=== PATIENT | female | born 1995 | race American Indian/Alaskan Native ===

== ENCOUNTER 2021-11-12 17:51 | Emergency (ER) | payer SELFPAY ==
[2021-11-12] MEDS ORDERED: HYDROmorphone 2 MG/1 ML INJ IV ONE (20:02)
[2021-11-12] MEDS ORDERED: ONDANSETRON 4 MG/2 ML INJ IV ONE (20:02)
[2021-11-12] MEDS ORDERED: SODIUM CHLORIDE 0.9% 1000 ML 1,000 ML IV ONE (20:02)
--- NOTE | 2021-11-12 20:05 | Emergency Department Report ---
ED HPI - General Chief complaint: Vaginal Bleeding Stated complaint: MISCARRIAGE (LOOSING BLOOD) Time Seen by Provider: 11/12/21 19:45 Source: patient Mode of arrival: Ambulatory Limitations: No Limitations - History of Present Illness Initial comments: Patient is a 26-year-old female that presents emergency room with complaints of vaginal bleeding and lower abdominal pain. Patient states the pain started early this morning. Patient states she woke up in a pool of blood. Patient states she has soaked through multiple pads. Patient states that she is 10 to 11 weeks . Patient states she had an ultrasound at [facility] to confirm approximately 4 weeks ago. Patient states she has not seen an [facility] as of yet. Patient states she is not taking a vitamin. Patient states she is a and has never had a miscarriage or an . Patient states the pain is severe. Patient states the pain is cramping and was intermittent but now it is constant. Patient states she is passing heavy blood and a lot of clots. Patient states she is soaking through pads approximately 1 pad every 10 minutes. Patient denies recent travel. Patient denies recent international travel. Patient denies exposure to the novel coronavirus. Patient denies sick contacts. Patient denies fever and chills. Patient denies cough. Patient denies diarrhea. Patient denies coming in contact with anybody with symptoms of the novel coronavirus. MD Complaint: abdominal pain, vaginal bleeding, "contractions" -: Sudden Location: pelvis, abdomen Radiation: suprapubic Severity scale (0 -10): 10 Quality: cramping Consistency: intermittent Improves with: rest Worsens with: movement Associated symptoms: vaginal bleeding, abdominal pain. denies: headache, vision changes, malaise, dysparuenia, rash, seizure, shortness of breath, syncope, weakness Vaginal bleeding: heavy, clots :: Yes Number of weeks : 11 OB History - Current : no complications OB History - Previous Pregnancies: no complications Pre- care: previous ultrasound confi - Related Data : 3 Para: 2 Ab: 0 Previous Rx's Medication Instructions Recorded Last Taken Type Acetaminophen/Codeine [Tylenol 1 tab PO Q6H PRN #15 tab 11/13/21 Unknown Rx /Codeine # 3 tab] Allergies Allergy/AdvReac Type Severity Reaction Status Date / Time No Known Allergies Allergy Verified 11/12/21 21:37 ED Review of Systems ROS: Stated complaint: MISCARRIAGE (LOOSING BLOOD) Other details as noted in HPI Constitutional: denies: chills, fever Eyes: denies: eye pain, eye discharge, vision change ENT: denies: ear pain, throat pain Respiratory: denies: cough, shortness of breath, wheezing Cardiovascular: denies: chest pain, palpitations Endocrine: no symptoms reported Gastrointestinal: as per HPI, abdominal pain. denies: diarrhea Genitourinary: as per HPI. denies: urgency, dysuria, discharge Musculoskeletal: denies: back pain, joint swelling, arthralgia Skin: denies: rash, lesions Neurological: denies: headache, weakness, paresthesias Psychiatric: denies: anxiety, depression Hematological/Lymphatic: denies: easy bleeding, easy bruising ED Past Medical Hx - Past Medical History Previous Medical History?: No - Surgical History Past Surgical History?: No - Family History Family history: no significant - Social History Smoking Status: Never Smoker Substance Use Type: None - Medications Home Medications: Home Medications Medication Instructions Recorded Confirmed Last Taken Type Acetaminophen/Codeine [Tylenol 1 tab PO Q6H PRN #15 tab 11/13/21 Unknown Rx /Codeine # 3 tab] ED Physical Exam - General Limitations: No Limitations General appearance: alert, in no apparent distress - Head Head exam: Present: atraumatic, normocephalic - Eye Eye exam: Present: normal appearance - ENT ENT exam: Present: mucous membranes moist - Neck Neck exam: Present: normal inspection - Respiratory Respiratory exam: Present: normal lung sounds bilaterally. Absent: respiratory distress - Cardiovascular Cardiovascular Exam: Present: regular rate, normal rhythm. Absent: systolic murmur, diastolic murmur, rubs, gallop - GI/Abdominal GI/Abdominal exam: Present: soft, normal bowel sounds - Extremities Exam Extremities exam: Present: normal inspection - Back Exam Back exam: Present: normal inspection - Neurological Exam Neurological exam: Present: alert, oriented X3 - Psychiatric Psychiatric exam: Present: normal affect, normal mood - Skin Skin exam: Present: warm, dry, intact, normal color. Absent: rash ED Course Vital Signs 11/12/21 21:51 Pulse Rate 96 H Respiratory 16 Rate Blood Pressure 119/84 [Left] O2 Sat by Pulse 98 Oximetry - Reevaluation(s) Reevaluation #1: Patient states the bleeding has stopped. Patient states feeling much better. I discussed all results and clinical findings with patient. I discussed plan of care with patient. Patient agrees with plan of care. Patient is stable for discharge. Patient will be discharged home. Patient given discharge instructions. Patient voiced understanding of discharge instructions. 11/13/21 00:39 ED Medical Decision Making - Lab Data Result diagrams: 11/12/21 20:55 11/12/21 20:55 - Radiology Data Radiology results: report reviewed ULTRASOUND OBSTETRIC INDICATION / CLINICAL INFORMATION: abd pain. vag bleed.. TECHNIQUE: Transvaginal. COMPARISON: None available. FINDINGS: GESTATIONAL SAC: Not visualized YOLK SAC: Not visualized EMBRYO/FETUS: Not visualized ADNEXA: No significant abnormality. FREE FLUID: None. ADDITIONAL FINDINGS: None. IMPRESSION: 1. No IUP. Probable completed given patient's history of severe vaginal bleeding - Medical Decision Making Patient is a 26-year-old female that presents emergency room with complaints of heavy vaginal bleeding and lower abdominal pain and cramping. Patient has large amount of clots and heavy bleeding for several hours. Patient had labs done which were essentially unremarkable. Patient's hCG was positive. Patient had a transvaginal ultrasound which shows an empty uterus. Due to the fact patient is already had documented and now no IUP on ultrasound, the current findings are consistent with a complete miscarriage. Patient is stable for d ischarge. Patient does not require inpatient services. Patient not require further ER services. Patient's pain was treated with Dilaudid. Patient's vital signs stable the entire time in the ER. I discussed all results and clinical findings with patient. I discussed plan of care with patient. Patient agrees with plan of care. Patient is stable for discharge. Patient will be discharged home. Patient given discharge instructions. Patient voiced understanding of discharge instructions. - Differential Diagnosis Miscarriage, threatened miscarriage, vaginal bleeding, Critical care attestation.: If time is entered above; I have spent that time in minutes in the direct care of this critically ill patient, excluding procedure time. ED Disposition Clinical Impression: Complete miscarriage Qualifiers: Weeks of gestation: 11 weeks Qualified Code(s): Z3A.11 - 11 weeks gestation of Disposition: HOME / SELF CARE / HOMELESS Is pt being admited?: No Does the pt Need Aspirin: No Condition: Stable Instructions: Managing Loss Additional Instructions: Patient to follow-up with primary care in 2 to 3 days. Patient to follow-up with [facility] in 2 to 3 days. Patient to rest. Patient to increase water. Patient to avoid strenuous exercise or heavy lifting until cleared by [facility]. Nothing per vagina until cleared by [facility]. Patient to start a vitamin. Patient to take Tylenol or ibuprofen as needed for pain. Patient to take meds as directed. Patient to return to the ER if condition worsens, changes or new symptoms arise. Prescriptions: Acetaminophen/Codeine [Tylenol /Codeine # 3 tab] 1 tab PO Q6H PRN #15 tab PRN Reason: Pain , Severe (7-10) Referrals: SLY LYNCH MD [Primary Care Provider] - 2-3 Days LEONARDO PARK MD [Staff Physician] - 2-3 Days Time of Disposition: 00:43
[2021-11-12 21:16] LABS: Basophils % (Auto) 0.8 % (0.0-1.8); Eosinophils # (Auto) 0.1 K/mm3 (0.0-0.4); Eosinophils % (Auto) 1.7 % (0.0-4.3); Hematocrit 38.3 % (30.3-42.9); Hemoglobin 12.9 gm/dl (10.1-14.3); Lymphocytes # (Auto) 2.1 K/mm3 (1.2-5.4); Lymphocytes % (Auto) 34.1 % (13.4-35.0); Mean Corpuscular HGB Conc 34 % (30-34); Mean Corpuscular Volume 89 fl (79-97); Monocytes # (Auto) 0.5 K/mm3 (0.0-0.8); Platelet Count 180 K/mm3 (140-440); Red Blood Count 4.31 M/mm3 (3.65-5.03); Red Cell Distribution Width 13.6 % (13.2-15.2)
[2021-11-12] MEDS ORDERED: HYDROmorphone 1 MG/1 ML INJ ONE (21:28)
[2021-11-12 21:58] LABS: Alanine Aminotransferase 10 units/L (7-56); Albumin 4.8 g/dL (3.9-5); BUN/Creatinine Ratio 14; Blood Urea Nitrogen 7 mg/dL (7-17); Calcium 9.9 mg/dL (8.4-10.2); Hemolysis Index 16
--- NOTE | 2021-11-13 00:18 | Ultrasound Report ---
ULTRASOUND OBSTETRIC INDICATION / CLINICAL INFORMATION: abd pain. vag bleed.. TECHNIQUE: Transvaginal. COMPARISON: None available. FINDINGS: GESTATIONAL SAC: Not visualized YOLK SAC: Not visualized EMBRYO/FETUS: Not visualized ADNEXA: No significant abnormality. FREE FLUID: None. ADDITIONAL FINDINGS: None. IMPRESSION: 1. No IUP. Probable completed given patient's history of severe vaginal bleeding Signer Name: Marv Greenfield MD Signed: 11/13/2021 12:14 AM Workstation Name: [id number]
[2021-11-13 01:12] VITALS: BP 122/85
== END 2021-11-13 02:54 | disposition home or self-care (01) ==
LOC: ED 17:51
DX: O03.9 Complete or unspecified spontaneous abortion without complication (principal); Z3A.11 11 weeks gestation of pregnancy
CPT/HCPCS: 36415; 76801; 76817; 80053; 84702; 84703; 85025; 86900; 86901; 96361; 96374; 96375; 99284; J1170; J2405; J7030